=== PATIENT | female | born 1975 | race Caucasian/White ===

== ENCOUNTER → 2019-11-04 | Outpatient (CLI) | payer OTHER, MEDICARE, MEDICAID ==
[2019-04-15 14:59] VITALS: BP 131/76
[~2019-11-04] MED LIST: ADDERAL PO; AMIT150T PO; HALO5TAB PO; LITH300T30 PO
--- NOTE | 2019-11-04 16:49 | RAD ---
MRI Cervical Spine Without Contrast History: Cervical radiculopathy, pain, bilateral radiculopathy right greater than left for 3 years Technique: Multiplanar, multi sequential noncontrast MR imaging was performed of the cervical spine. Comparison: None Findings: Cervical cord caliber is within normal limits without defined or expansile signal abnormality, limited evaluation for subtle signal change due to motion. Cervical vertebral body stature and AP alignment are maintained. There is mild degenerative disc disease C5-6. There is no convincing marrow edema. There is mild mucosal thickening of the visualized paranasal sinuses. There is diffuse narrowing of the cervical spinal canal on a developmental basis. C2-C3: Central canal is narrowed to about 9 to 10 mm on developmental basis. Neural foramina are adequate. C3-C4: Central canal is borderline about 10 mm on developmental basis. There is likely mild left uncovertebral degenerative change and probable mild narrowing of the left neural foramen although poorly evaluated due to motion, right neural foramen not significantly narrowed. C4-C5: Central canal is borderline about 10 mm on developmental basis. There is facet degenerative change bilaterally greater on the right. There is uncovertebral degenerative change greater on the left. Right neural foramen is overall adequate, probable moderate to severe narrowing of the left neural foramen. C5-C6: There is minimal disc osteophyte complex. Central canal is likely narrowed to about 7 to 8 mm due to disc osteophyte complex and on developmental basis. There is facet degenerative change greater on the right. There is likely uncovertebral degenerative change greater on the left. Right neural foramen is probably adequate although poorly characterized, probable [id number] narrowing of the left neural foramen. C6-C7: Central canal is borderline about 10 mm on developmental basis. There is left uncovertebral degenerative change, also likely degree of facet degenerative change. Right neural foramen is adequate, likely at least mild narrowing of the left neural foramen although poorly characterized due to motion. C7-T1: There is no additional spinal stenosis. There is mild uncovertebral degenerative change, neural foramina not significantly narrowed. There is likely facet degenerative change. Impression: 1. Exam is degraded by motion. There is diffuse narrowing of the cervical spinal canal on a developmental basis, additional spinal stenosis on the order of 7-8 mm at C5-6. 2. There is facet and uncovertebral degenerative change, probable neural foramina compromise as stated although poorly characterized due to motion. Narrowing is likely greatest on the left at C4-C5 and to lesser degree on the left at C5-6 and C6-7. Electronically signed by: Nish Garcia MD (11/04/2019 4:46 PM) [id number]
== END | disposition home or self-care (01) ==
LOC: MRI 15:33
PROVIDERS: ATTEND Nurse Practitioner Family
DX: M50.122 Cervical disc disorder at C5-C6 level with radiculopathy (principal); M47.22 Other spondylosis with radiculopathy, cervical region; M48.02 Spinal stenosis, cervical region; J34.89 Other specified disorders of nose and nasal sinuses; M25.78 Osteophyte, vertebrae
CPT/HCPCS: 72141